=== PATIENT | female | born 1985 | race Caucasian/White ===

== ENCOUNTER 2018-07-17 07:13 | Inpatient (IN) | payer OTHER ==
[~2018-07-17] VITALS: Ht 154.9 cm; Wt 2.7 kg
[2018-07-17] MEDS ORDERED: SYNTHROID50 MCG PO (08:28)
[2018-07-17] MEDS ORDERED: PRENATAL 19 TA1 EACH PO (08:28)
[2018-07-17] MEDS ORDERED: ZANTAC 7575 MG PO (08:30)
[2018-07-19] MEDS ORDERED: PERCOCET 5-3251 EACH PO (09:49)
[2018-07-19] MEDS ORDERED: SURFAK240 M1 PO (09:49)
== END 2018-07-20 16:10 | disposition home or self-care (01) | DRG 766 ==
LOC: O/R 07:13 → OB/GYN 07:13 → LDR 07:13 → O/R 13:28 → OB/GYN 15:16
PROVIDERS: Specialist
PROC: 4A033R1 Measurement of Arterial Saturation, Peripheral, Percutaneous Approach (ICD-10-PCS; 2018-07-17)
PROC: 4A1HXCZ Monitoring of Products of Conception, Cardiac Rate, External Approach (ICD-10-PCS; 2018-07-17)
PROC: 10D00Z1 Extraction of Products of Conception, Low, Open Approach (ICD-10-PCS; principal; 2018-07-17 12:00)
DX: O34.211 Maternal care for low transverse scar from previous cesarean delivery (principal); Z3A.38 38 weeks gestation of pregnancy; Z37.0 Single live birth